=== PATIENT | male | born 2000 | race Caucasian/White ===

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

== ENCOUNTER 2020-09-18 23:51 | Observation (INO) | payer OTHER ==
[~2020-09-18] VITALS: Ht 180.3 cm; Wt 55.3 kg
[2020-09-19 00:24] LABS: BASOPHILS ABSOLUTE AUTO 0.03 K/mm3 (0.00-0.23); BASOPHILS PERCENT AUTO 0 % (0-2); EOSINOPHILS ABSOLUTE AUTO 0.09 K/mm3 (0.00-0.68); EOSINOPHILS PERCENT AUTO 1 % (0-6); Hematocrit 36.8 % (37.0-53.0); Hemoglobin 13.1 g/dL (13.5-17.5); IMMATURE GRAN ABSOLUTE AUTO 0.04 K/mm3 (0.00-0.10); IMMATURE GRAN PERCENT AUTO 0 % (0-1); LYMPHOCYTES ABSOLUTE AUTO 1.33 K/mm3 (0.84-5.20); LYMPHOCYTES PERCENT AUTO 12 % (21-46); MONOCYTES ABSOLUTE AUTO 0.77 K/mm3 (0.16-1.47); MONOCYTES PERCENT AUTO 7 % (4-13); Mean Corpuscular HGB 32.3 pg (26.0-34.0); Mean Corpuscular HGB Conc 35.6 g/dL (31.5-36.5); Mean Corpuscular Volume 91 fL (80-100); Mean Platelet Volume 9.1 fL (9.1-12.4); NEUTROPHILS PERCENT AUTO 79 % (41-73); Platelet Count 191 K/mm3 (150-400); RDW Coefficient Variation 12.1 % (11.7-14.2); RDW Standard Deviation 40.7 fL (35.1-46.3); Red Blood Cell Count 4.05 M/mm3 (4.30-5.90); White Blood Cell Count 10.86 K/mm3 (4.00-11.30)
[2020-09-19 00:41] LABS: Alanine Aminotransfer (ALT/SGP 19 U/L (12-78); Albumin, Blood 3.8 g/dL (3.4-5.0); Albumin/Globulin Ratio 1.4 (0.8-1.8); Alk Phos 82 U/L (50-136); Anion Gap 5 mmol/L (6-16); Aspartate Aminotrans (AST/SGOT 10 U/L (12-37); Bilirubin, Total 0.4 mg/dL (0.1-1.0); Blood Urea Nitrogen 17 mg/dL (8-24); Bun/Creatinine Ratio 14.2 (12.0-20.0); CO2, Blood 26 mmol/L (21-32); Calcium, Blood 8.4 mg/dL (8.5-10.1); Chloride, Blood 107 mmol/L (98-108); Globulin, Blood 2.8 g/dL (2.2-4.0); Glomerular Filtration Rate >60 (60-); Glucose, Blood 231 mg/dL (70-99); Potassium, Blood 3.9 mmol/L (3.5-5.5); Sodium, Blood 138 mmol/L (136-145); Total Protein, Blood 6.6 g/dL (6.4-8.2)
[2020-09-19 04:02] LABS: SARS-Cov-2 (COVID-19) PCR, MMC NEGATIVE (NEGATIVE)
--- NOTE | 2020-09-19 05:02 | NUR ---
PT ARRIVED TO ROOM 210 FROM ED ABOUT 0430. PT IS A/O, DROWSY BUT AWAKENS WHEN ASKED QUESTIONS. PT REP SOME NAUSEA; MEDICATED WITH ZOFRAN. MOTHER IS AT BEDSIDE, ATTENTIVE AND APPROPRIATE. PT AND MOTHER ORIENTED TO ROOM AND CALL LIGHT. INSTRUCTED ON NPO STATUS. REPORTS NO FURTHER QUESTIONS AT THIS TIME.
--- NOTE | 2020-09-19 09:09 | NUR ---
PT SLEEPING WHEN THIS RN ENTERED FOR ASSESSMENT, AWAKENS EASILY TO VERBAL STIMULI AND ANSWERS QUESTIONS APPROPRIATLY. PT DENIES ANY SOB, REPORTS PAIN BELOW R RIB CAGE, BELIEVES R/T FRIEND DOING HEIMLICH. PT DENIES DIFFICULTY SWALLOWING AT THIS TIME BUT DOES STATES HE FEELS LIKE "SOMETHING IS STUCK". PT NPO AT THIS TIME.
--- NOTE | 2020-09-19 11:39 | NUR ---
History, Chart, Medications and Allergies reviewed before start of procedure.Lungs clear T/O to Auscultation. Patient confirms NPO status and agrees with scheduled surgery. Pre-Op teaching done. Pt verbalizes understanding.
--- NOTE | 2020-09-19 11:47 | NUR ---
PT TO DAY SURGERY AT [facility] 1135 FOR EGD
--- NOTE | 2020-09-19 11:58 | NUR ---
09/19/20 1158 Gus Howard History, Chart, Medications and Allergies reviewed before start of procedure. MONITOR INTACT WITH CONTINUOUS PULSE OXIMETRY AND INTERMITTENT BP. 3-LEAD EKG REVIEWED WITH PHYSICIAN PRIOR TO START OF PROCEDURE. O2 VIA N/C INTACT THROUGHOUT SEDATION/PROCEDURE. Bite Block Placed. PATIENT DETERMINED TO BE ASA APPROPRIATE FOR PROPOFOL SEDATION PRIOR TO START OF PROCEDURE BY DR. CARROLL.
--- NOTE | 2020-09-19 16:28 | NUR ---
DISCHARGE PT DISCHARGED HOME FROM UNIT AT [facility] 1628. PT AND MOTHER GIVEN WRITTEN AND VERBAL DISCHARGE INSTRUCTIONS AND VERBALIZED UNDERSTANDING OF THESE INSTRUCTIONS. PT TO FOLLOW UP AT [facility] W/GI, RETURN TO ER FOR ANY RETURN/WORSENING SYMPTOMS. IV REMOVED, PT TOLERATED WELL. DECLINED WHEELCHAIR TO CAR.
== END 2020-09-19 16:05 | disposition home or self-care (01) ==
LOC: ER 23:51 → MEDS 23:52 → SURS 23:52 → ER 09-19 04:18 → SURS 09-19 04:22
PROVIDERS: Emergency Medicine; Internal Medicine Gastroenterology; ADMIT Family Medicine
PROC: 0DB58ZX Excision of Esophagus, Via Natural or Artificial Opening Endoscopic, Diagnostic (ICD-10-PCS; principal; 2020-09-19 10:00)
PROC: 0D758ZZ Dilation of Esophagus, Via Natural or Artificial Opening Endoscopic (ICD-10-PCS; principal; 2020-09-19 10:00)
DX: K22.2 Esophageal obstruction (principal); T18.128A Food in esophagus causing other injury, initial encounter; J45.909 Unspecified asthma, uncomplicated; D64.9 Anemia, unspecified; R73.9 Hyperglycemia, unspecified; J86.0 Pyothorax with fistula; Z20.822 Contact with and (suspected) exposure to COVID-19
CPT/HCPCS: 36415; 70491; 71260; 80053; 85025; 88305; 88312; 96374; 99285-25; G0378; J1610; J2405; J2704; J7120; Q9967; U0004

== ENCOUNTER 2020-09-30 13:56 | Day surgery (SDC) | payer OTHER ==
[~2020-09-30] VITALS: Ht 170.2 cm; Wt 51.8 kg
--- NOTE | 2020-09-30 16:56 | NUR ---
09/30/20 023 SARINA MOCK RECEIVED REPORT FROM ASIA ELISE. PT HAD UPPER ENDOSCOPY PROCEDURE TODAY. DURING PROCEDURE A SMALL OPENING WAS DISCOVERED IN THE ESOPHAGEAL AREA BY DR. CARROLL. PROCEDURE WAS ABORTED. PT TRANSPORTED TO RECOVERY ROOM. PT WAS AROUSED AWAKE. DR. CARROLL ORDERED A CT SCAN OF THE ABDOMEN WITH IV CONTRAST AND ORAL CONTRAST. THIS RN TRANSPORTED PATIENT VIA WHEELCHAIR TO RADIOLOGY WAITING ROOM. PTS MOM ACCOMPANIED PT IN THE WAITING ROOM. PT NOT COMPLAINING OF PAIN UPON DISCHARGE FROM SURGERY CENTER.
== END 2020-09-30 17:00 | disposition home or self-care (01) ==
LOC: ORSCSDS 13:56
PROVIDERS: Internal Medicine Gastroenterology
PROC: 0DJ08ZZ Inspection of Upper Intestinal Tract, Via Natural or Artificial Opening Endoscopic (ICD-10-PCS; principal; 2020-09-30 15:15)
DX: R13.14 Dysphagia, pharyngoesophageal phase (principal); K22.8 Other specified diseases of esophagus; F17.210 Nicotine dependence, cigarettes, uncomplicated; J45.909 Unspecified asthma, uncomplicated
CPT/HCPCS: 74160; J2250; J2704; J7120; Q9967